=== PATIENT | female | born 2000 | race Two or more races ===

== ENCOUNTER 2025-07-09 06:45 | Emergency (ER) | payer MEDICAID, SELFPAY ==
[2025-07-09 06:47] VITALS: BP 132/74; PULSE 82; RESP 17; TEMP 36.8; O2SAT 97; BMI 31.1
--- NOTE | 2025-07-09 07:01 | XR_ITS ---
Examination: Abdomen sonogram, Limited Date and time of exam: July 09 70,025, 0727 hrs. Indications: Right upper abdominal pain nausea vomiting beginning 5 days ago Technique: Real-time denise scale transabdominal sonographic images of the upper abdomen obtained. Findings: Normal gallbladder. Normal common bile duct 0.2 cm Pancreatic head 1.9 cm Liver 15.6 cm fatty infiltration no focal liver lesions Normal hepatopedal portal venous flow Patent IVC Impression: Normal gallbladder Normal common bile duct
--- NOTE | 2025-07-09 07:03 | EDNOTE_ITS ---
<Statement entered by Karla Lundy MD - 07/09/25 14:59> As co-signing physician, I was present and available for consult prn. I concur with the plan and care as documented by the midlevel provider. Nausea/Vomit./Diarrhea-RME/HPI General Chief complaint: Syncope / Near Syncope Stated complaint: NEAR SYNCOPE NV Time Seen by Provider: 07/09/25 06:54 Arrival date/time: 07/09/25 06:45 Limitations: no limitations RME / HPI RME / HPI Narrative: 24-year-old female states she has been having nausea on and off for about 4 days. Only abdominal surgery is . No history of gallstones or kidney stones. States no diarrhea no fever. No rashes. No burning with urination. No history of diabetes or other comorbidities at this time. also having constipation but worries about this pain. Related Data Previous Rx's ?Medication ?Instructions ?Recorded labetalol 100 mg tablet 100 mg PO BID #30 tabs 02/13 docusate sodium 100 mg capsule 100 mg PO QDAY #30 caps 07/09/25 (Colace) ondansetron 4 mg disintegrating 4 mg PO Q8H PRN nausea and 07/09/25 tablet vomiting #10 tabs Allergies Allergy/AdvReac Type Severity Reaction Status Date / Time No Known Allergies Allergy Unverified 07/09/25 06:51 Review of Systems Review of Systems Systems Reviewed: All systems reviewed, normal except as documented Constitutional Constitutional: Denies fever(s) Gastrointestinal Gastrointestinal: Reports as per HPI Genitourinary Genitourinary: Reports as per HPI ED Exam General Limitations: Present no limitations General appearance: Present alert and in no apparent distress Eye Eye exam: Present normal appearance, PERRL and EOMI Respiratory Respiratory exam: Present normal lung sounds bilaterally Cardiovascular Cardiovascular exam: Present regular rate, normal rhythm and normal heart sounds Abdominal Exam Abdominal exam: Present soft, tenderness (ruq ttp, right flank ttp ) and normal bowel sounds Extremities Exam Extremities exam: Present normal inspection and full ROM Back Exam Back exam: Present normal inspection and full ROM Psychiatric Psychiatric exam: Present normal affect and normal mood Skin Skin exam: Present warm, dry, intact and normal color Course Quality Measures none Orders Category Date Time Status CT abdomen pelvis wo con Stat Exams 07/09/25 08:27 Completed US gall bladder Stat Exams 07/09/25 07:01 Completed XR chest 2V Stat Exams 07/09/25 08:27 Completed CBC Stat Lab 07/09/25 08:02 Completed CMP [Comprehensive Metabolic Panel] Stat Lab 07/09/25 08:02 Completed Drug Screen,Urine Stat Lab 07/09/25 07:25 Completed HCG,Qualitative Serum Stat Lab 07/09/25 08:02 Completed UA [Urinalysis] Stat Lab 07/09/25 07:25 Completed Urinalysis, C/S if Indicated Stat Lab 07/09/25 07:25 Completed Ketorolac Inj [Toradol Inj] Med 07/09/25 07:00 Discontinued 30 mg IM X1 ONE Ondansetron Odt [Zofran Odt] Med 07/09/25 07:00 Discontinued 4 mg PO X1 ONE Reevaluation(s) Reevaluation #1: eating a sandwich and asking to go home Time: 10:45 Vital Signs Vital signs: Vital Signs Temperature 98.3 F 07/09/25 06:47 Pulse Rate 82 07/09/25 06:47 Respiratory Rate 17 07/09/25 06:47 Blood Pressure 132/74 H 07/09/25 06:47 Pulse Oximetry (%) 97 07/09/25 06:47 Oxygen Delivery Method Room Air 07/09/25 06:47 Nausea/Vomiting/Diarrhea MDM Narrative MDM Narrative:: 24-year-old performed extensive workup to rule out surgical cause such as gallstones kidney stones intra-abdominal abscess bowel obstruction. Workup essentially negative other than history of constipation. For which sent medications along with nausea. Uncertain cause of abdominal pain however could be viral. Advise follow-up with PCP return to ER symptoms worsen Patient data External records reviewed:: [facility] previous records Clinical information provided by:: patient Social determinants that could affect healthcare access:: other (specify) Patient has the following chronic illnesses:: History of preeclampsia How is presenting disease/condition affected by chronic disease/condition?: uneffected by Evaluation data The following diagnostics were reviewed and interpreted by me:: lab results and radiology exam(s) Lab and/or radiology exams considered but not ordered:: All imaging and labs considered were ordered other than lipase which was not available as an in-house test today Interpretation Summary: Ultrasound did not show gallstones CT was negative for surgical etiology CBC CMP within normal limits Drug tox negative UA did show some blood Medications / Prescriptions Medications / Prescriptions considered but not ordered:: All meds considered were given other than Medication administrations:: Medication Administration History Discontinued Medications Ketorolac Tromethamine (Ketorolac Inj 30 Mg/Ml Vial) 30 mg IM X1 ONE Stop: 07/09/25 07:01 Last Admin: 07/09/25 07:24 Dose: 30 mg Documented By: DO Ondansetron HCl (Ondansetron Odt 4 Mg Tabrap) 4 mg PO X1 ONE; Protocol Stop: 07/09/25 07:01 Last Admin: 07/09/25 07:24 Dose: 4 mg Documented By: DO See above Consultations Consultation(s) initiated? (list below): No Diagnosis Nausea Differential Diagnosis: traveler's diarrhea, food poisoning, gastroenteritis, clostridium difficile infection, drug-induced nausea and vomiting and other (Gallstones, kidney stones) Most likely diagnosis given after review of the tests above:: Abdominal pain unknown etiology Constipation Vomiting Admission Indicated Admission indicated?: not indicated Admission Request Was there a request for admission?: No Disposition Plan Disposition Plan: Discharge Discharge Attestation Discharge Attestation: The patient and all family members were given an opportunity to ask questions and understood the discharge instructions. Discharge instructions specifically effects, indications for sooner follow up or return to the emergency department, and the expected course of current diagnosis. Patient condition: Stable Discharge Plan Plan Patient Disposition: HOME (Self Care) Discharge Disposition comment: Follow-up with PCP in 2 to 3 days Prescriptions/Referrals Prescriptions/Med Rec: New ondansetron 4 mg tablet,disintegrating 4 mg PO Q8H PRN (Reason: nausea and vomiting) Qty: 10 0RF docusate sodium [Colace] 100 mg capsule 100 mg PO QDAY Qty: 30 0RF No Action labetalol 100 mg tablet 100 mg PO BID Qty: 30 0RF Referrals: Farzad Escobar MD [Primary Care Provider, Family Practice] - In 1 week Problem List Clinical Impression: Abdominal pain, Vomiting, Constipation Patient/Caregiver Discharge Instructions Education Materials: Abdominal Pain, ED Constipation (Adult) Print Language: Com[place] Stand Alone Forms: Brandi Award Info., Patient Portal Info Letter PA/ELECTRICAL REPAIRER Supervising Physician PA/ELECTRICAL REPAIRER Supervising Physician: Dr. Lundy
[2025-07-09] MEDS: KETOROLAC INJ 30 MG/ML VIAL IM (07:24)
[2025-07-09] MEDS: ONDANSETRON ODT 4 MG TABRAP PO (07:24)
[2025-07-09 07:32] LABS: Collection Type, Urine Clean Catch
[2025-07-09 08:08] LABS: Bilirubin,Urine Negative (Negative); Blood,Urine 1+ (Negative); Clarity,Urine Clear (Clear/Hazy); Color,Urine Lt-Yellow (Lt Yel-Yel); Culture Indicated,Urine Not Indicated; Glucose, Urine Negative (Negative); Ketones,Urine Negative (Negative); Leukocyte Esterase,Urine Negative (Negative); Nitrite,Urine Negative (Negative); PH,Urine 7.0 (5.0-7.0); Protein,Urine Negative (Neg - Trace); RBC,Urine 2 /hpf (0-3); Specific Gravity,Urine 1.009 (1.001-1.035); Squamous Epithelial Cell,Urine 1 /hpf (0-5); Urobilinogen,Urine Negative mg/dL (0.0-1.0); WBC,Urine 1 /hpf (0-5)
[2025-07-09 08:15] LABS: Basophils # (Auto) 0.0 Thou/mm3 (0.0-0.2); Basophils % (Auto) 0 % (0-2.5); Eosinophils # (Auto) 0.0 Thou/mm3 (0.0-0.5); Eosinophils % (Auto) 0 % (0-10); Hematocrit 30.7 % (36.0-46.0); Hemoglobin 9.6 g/dL (12.0-16.0); Immature Granulocytes Auto 0.02 Thou/mm3 (0.00-0.00); Lymphocytes # (Auto) 1.6 Thou/mm3 (1.0-4.8); Lymphocytes % (Auto) 23 % (10-50); Mean Corpuscular HGB Conc 31.3 g/dl (31.0-37.0); Mean Corpuscular Hemoglobin 24.6 pg (25.0-35.0); Mean Corpuscular Volume 79 fL (80-100); Monocytes # (Auto) 0.4 Thou/mm3 (0.0-0.8); Monocytes % (Auto) 6 % (0-12); Neutrophils # (Auto) 4.7 Thou/mm3 (1.8-7.7); Neutrophils % (Auto) 70 % (37-80); Nucleated Red Blood Cell # 0.00 Thou/mm3 (0.00-0.00); Nucleated Red Blood Cell % 0 /100 WBC (0); Platelet Count 375 Thou/mm3 (140-440); RDW Standard Deviation 41.5 fL (36.4-46.3); Red Blood Count 3.91 Miln/mm3 (4.00-5.20); White Blood Count 6.7 Thou/mm3 (3.6-11.0)
--- NOTE | 2025-07-09 08:27 | XR_ITS ---
Examination: CT abdomen and pelvis without contrast. Coronal 3-D reconstructions. Sagittal 2-D reconstructions. Date and time of exam:July 09, 2025, 0944 hrs. Indications: Nausea vomiting generalized abdominal pain beginning several days ago CTDI: vol (mGy): 8.63 DLP: (mGycm): 436 Technique: Axial images of the abdomen have been obtained, 3 mm slice thickness Intravenous contrast material has not been administered. Low dose protocols were performed. One or more of the following dose reduction techniques were used; automated exposure control, adjustment of the mA and/or KV according to patient size, use of iterative reconstruction technique. Findings: No focal liver or splenic lesions No gallstones No pancreatic or adrenal mass No renal or ureteral calculi, no hydronephrosis Normal appendix. No bowel obstruction Anteverted uterus No pelvic mass Urinary bladder intact Moderate disc narrowing L5-S1 Impression: No renal or ureteral calculi, no hydronephrosis Normal appendix No bowel obstruction diverticulitis or free air
--- NOTE | 2025-07-09 08:27 | XR_ITS ---
Examination: PA lateral chest 2 views Technique: Upright PA lateral chest 2 views Date and time: July 09, 2025 0831 hrs. Indications: Shortness of breath. Findings: Normal heart size. Lungs are clear. The osseous structures are intact. Impression: No active disease
[2025-07-09 08:29] LABS: Alanine Aminotransferase 10 U/L (10-49); Albumin, Serum 4.6 gm/dL (3.5-5.0); Albumin/Globulin Ratio 1.9 (1.2-2.2); Alkaline Phosphatase 93 U/L (46-116); Anion Gap 9 (7-16); Aspartate Amino Transferase 14 U/L (0-34); BUN/Creatinine Ratio 9 Ratio (12-20); Bilirubin,Total 0.4 mg/dL (0.3-1.2); Blood Urea Nitrogen 7 mg/dL (9-23); Calcium 9.3 mg/dL (8.3-10.6); Calcium (Corrected) 9.3 mg/dL (8.5-10.1); Carbon Dioxide 26.4 mMol/L (20.0-31.0); Chloride 106 mMol/L (98-107); Creatinine (Component) 0.8 mg/dL (0.6-1.3); Estimated Creatinine Clearance 102.5 mL/min (>60); Globulin 2.4 gm/dL (2.3-3.5); Glucose 86 mg/dL (74-106); Osmolality,Calculated 278 (275-295); Potassium 4.2 mMol/L (3.4-5.1); Sodium 141 mMol/L (136-145); Total Protein 7.0 gm/dL (5.7-8.2); eGFR > 60 See Note
[2025-07-09 09:02] LABS: Amphetamine/Methamp Scrn,U Negative (Negative); Barbiturate Screen,Urine Negative (Negative); Benzodiazepines Screen,Urine Negative (Negative); Benzoylecgonine Screen, Ur Negative (Negative); Fentanyl Screen,Urine Negative (Negative); Opiate Screen,Urine Negative (Negative); THC Screen,Urine Negative (Negative)
[2025-07-09 09:03] LABS: HCG,Qualitative Serum Negative
[2025-07-09 09:05] VITALS: BP 115/77; PULSE 81; RESP 18; TEMP 36.9; O2SAT 97
--- NOTE | 2025-07-09 10:26 | PC.NURSE ---
PT CAME UP TO THIS RN STATING SHE IS HUNGRY AND FEELS LIKE SHE IS GOING TO PASS OUT, THIS RN SPOKE W/PROVIDER WHO GAVE OK TO GIVE A SANDWICH. TURKEY SANDWICH AND JUICE PROVIDED AT THIS TIME.
== END 2025-07-09 11:06 | disposition home or self-care (01) ==
PROVIDERS: Physician Assistant; Emergency Provider Emergency Medicine; PCP Family Medicine
DX: K59.00 Constipation, unspecified (principal)
CPT/HCPCS: 36415; 71046; 74176; 76705; 80053; 80307; 81001; 84703; 85025; 96372; 99284; J1885; Q0162